=== PATIENT | female | born 1995 | race Caucasian/White ===

== ENCOUNTER 2021-01-19 10:17 | Observation (INO) ==
--- NOTE | 2021-01-15 08:34 | Anesthesiology Consultation ---
Date of Service January 15, 2021 Assessment & Plan (1) Encounter for pre-operative examination: Chart Review Chart Review: Acceptable Risk for Surgery (pending preop Covid testing ) and Patient NOT seen in Pre Admission Testing - Check BSG AM DOS - Check test AM DOS Per nursing assessment 01/14/21, patient denies any recent travel. No known Covid positive contacts or Covid related symptoms. No known Covid infection in the past 90 days. Preop Covid testing done 01/13/21 at [facility]= awaiting results . History Surgery Operation Date: 01/19/21 12:00 Proposed Procedures p L4-S1 Decompression and Fusion, Spinal Cord Monitoring - Romel Rea, Height/Weight Height: 5 ft 3 in Weight: 106.594 kg Allergies Allergy/AdvReac Type Severity Reaction Status Date / Time cephalexin [From Keflex] Allergy Intermediate Swelling Verified 01/14/21 10:38 of Lip/Tongue/Throat Medications Home Medications Medication Instructions Recorded Confirmed Last Taken clobetasol 1 % TOPICAL BID PRN 01/28/20 01/14/21 01/28/20 levonorgest-eth.estradiol-iron 1 tab PO PM 01/28/20 01/14/21 01/27/20 [Balcoltra] levothyroxine 50 mcg PO QAM 01/28/20 01/14/21 01/28/20 metformin 500 mg PO BID 01/28/20 01/14/21 Unknown escitalopram oxalate [Lexapro] 10 mg PO QAM 01/14/21 01/14/21 Unknown Past Medical History Medical History Anxiety Back pain Depression Diabetes Hypothyroidism Past Surgical History Surgical History History of myringotomy x1 [place] teeth extracted Social History Smoking Status: Never smoker Do You Dip or Chew Tobacco: No Hx Alcohol Use: Yes Alcohol type: wine alcohol intake frequency: a few times a month Hx Substance Use: No substance use type: does not use Lab Results Anesthesia Preop Results Results Anesthesia Widget: WBC 9.67 K/uL (4.8-10.8) 01/14/21 Hgb 15.4 g/dL (12.0-16.0) 01/14/21 Hct 45.5 % (37-47) 01/14/21 Plt 360 K/uL (130-400) 01/14/21 Na 139 mmol/L (136-145) 01/14/21 K 3.6 mmol/L (3.5-5.1) 01/14/21 Cl 106 mmol/L (98-107) 01/14/21 CO2 27 mmol/L (21-32) 01/14/21 BUN 20 mg/dl (7-18) H 01/14/21 Creat 0.72 mg/dl (0.6-1.2) 01/14/21 Glucose Level 101 mg/dl (70-99) H 01/14/21 PT 10.7 Seconds (9.0-12.0) 01/14/21 INR 1.1 (0.9-1.1) 01/14/21 Urine Color Dark Yellow 01/14/21 Urine Appearance Clear (Clear) 01/14/21 Urine pH 5.0 (4.5-7.5) 01/14/21 Urine Specific [place] 1.030 (1.000-1.030) 01/14/21 Urine Protein Negative (Negative) 01/14/21 Urine Glucose (UA) Negative (Negative) 01/14/21 Urine Ketones Trace (Negative) H 01/14/21 Urine Blood 1+ (Negative) H 01/14/21 Urine Nitrite Negative (Negative) 01/14/21 Urine Bilirubin Negative (Negative) 01/14/21 Urine Urobilinogen Negative (Negative) 01/14/21 Urine Leukocyte Esterase Negative (Negative) 01/14/21 Urine WBC (Auto) 1-5 /hpf (0-5) 01/14/21 Urine RBC (Auto) 5-10 /hpf (0-4) H 01/14/21 Urine Hyaline Casts (Auto) 1-5 /lpf (0-5) 01/14/21 Urine Epithelial Cells (Auto) >30 /lpf (0-5) H 01/14/21 Urine Bacteria (Auto) Negative (Negative) 01/14/21 Testing Laboratory Results Blood Type A Positive 01/14/21 12:35 Antibody Screen NEGATIVE 01/14/21 12:35 Electrocardiogram Date: 01/14/21 NSR with sinus arrhythmia at 82bpm. Normal EKG per cardio. Chest X-Ray Date: 01/14/21 Findings: + NAD
[~2021-01-19 10:17] MED LIST: ACETAMINOPHEN 500 MG TAB PO SCH; CeleBREX 200 MG CAP PO SCH; GABAPENTIN 900 MG DOSE PO SCH; LR 15ML/HR IV SCH; SUGAMMADEX SODIUM 200 MG/2 ML VIAL IV ONE
[2021-01-19] MEDS ORDERED: SODIUM CHLORIDE 0.9% INJ 10 ML VIAL ONE (10:43)
[2021-01-19] MEDS ORDERED: DEXAMETHASONE SOD INJ 4 MG/ML VIAL ONE (10:43)
[2021-01-19] MEDS ORDERED: MIDAZOLAM HCL 1 MG/ML 2ML VIAL ONE (10:43)
[2021-01-19] MEDS ORDERED: LIDOCAINE 2% 2 ML VIAL/AMP(20MG/ML) INFIL ONE (10:43)
[2021-01-19] MEDS ORDERED: ONDANSETRON INJ 2 MG/ML 2 ML VIAL ONE (10:43)
[2021-01-19] MEDS ORDERED: PROPOFOL IV EMULSION 10 MG/ML 20 ML VIAL IV ONE (10:43)
[2021-01-19] MEDS ORDERED: ROCURONIUM BROMIDE 10 MG/ML 5 ML VIAL IV ONE ×4 (10:43→14:33)
[2021-01-19] MEDS ORDERED: HYDROmorphone INJ 2 MG/ML SYR/VIAL ONE (10:44)
[2021-01-19] MEDS ORDERED: ONDANSETRON INJ 2 MG/ML 2 ML VIAL IV PRN ×2 (11:17→16:18)
[2021-01-19] MEDS ORDERED: ATROPINE SULFATE 0.1 MG/ML 10ML SYR IV PRN (11:17)
[2021-01-19] MEDS ORDERED: ePHEDrine sulfate 50 MG/ML AMP IV PRN (11:17)
[2021-01-19 11:47] LABS: Pregnancy Test, Urine Negative (Negative)
--- NOTE | 2021-01-19 12:10 | History & Physical Bridge Note ---
Date of Service January 19, 2021 History & Physical Bridge Note I have examined the patient, reviewed the History & Physical and in the interval since the performance of the History & Physical I have noted the following changes of clinical significance: no changes noted
--- NOTE | 2021-01-19 12:11 | History & Physical Report ---
Date of Service January 19, 2021 Assessment & Plan (1) Herniation of cervical intervertebral disc with radiculopathy: Admission and Anticipated Discharge Date Admission Date: L4-S1 decompression fusion History of Present Illness Chief Complaint: Back and bilateral leg pain Primary Care Provider: Lynn De La Rosa MD This is a 25-year-old female who presents with chronic persistent back and leg pain. Failing course of nonoperative care she is here for surgical invention. Allergies Allergy/AdvReac Type Severity Reaction Status Date / Time cephalexin [From Keflex] Allergy Intermediate Swelling Verified 01/19/21 10:48 of Lip/Tongue/Throat Home Medications Medication Instructions Recorded Confirmed Type clobetasol 1 % TOPICAL BID PRN 01/28/20 01/19/21 History levonorgest-eth.estradiol-iron 1 tab PO PM 01/28/20 01/19/21 History [Balcoltra] levothyroxine 50 mcg PO QAM 01/28/20 01/19/21 History metformin 500 mg PO BID 01/28/20 01/19/21 History escitalopram oxalate [Lexapro] 10 mg PO QAM 01/14/21 01/19/21 History Past Med/Surg History Medical History Anxiety Back pain Depression Diabetes Hypothyroidism Surgical History History of myringotomy x1 [place] teeth extracted Social History Smoking Status: Never smoker Second Hand Exposure: No; Do You Dip or Chew Tobacco: No; Tobacco Cessation Education Requested by Patient: No Hx Alcohol Use: Yes Alcohol type: wine Hx Substance Use: No Preferred Language: Kinyarwanda Communication Ability: Effective Costume Mistress Required: No Beliefs That Will Affect Care: None Current Living Situation: Significant Other current occupational status: employed current occupation: Works at [employer] Other Information That Helps Us Care for You: No Feels Safe at Home: Yes Safety Concerns: Feels Safe At This Time Assistive Devices: Contacts and Glasses Physical Exam Physical Exam: Patient is alert and oriented Heart regular rate and rhythm Lungs clear to auscultation Results & Data ([facility]) Vital Signs (Past 12 Hours) Vital Signs Temp Pulse Resp BP Pulse Ox 01/19/21 10:52 37.4 C 90 18 135/83 98
[2021-01-19] MEDS ORDERED: CLINDAMYCIN 600 MG/54 ML D5W IV ONE (12:24)
[2021-01-19] MEDS ORDERED: BUPIVACAINE/EPINEPHRINE 0.5% MPF 1:200,000 30 ML VIAL ONE (12:35)
[2021-01-19] MEDS: CLINDAMYCIN 600 MG/54 ML BAG IV SCH ×2 (12:39→16:46)
--- NOTE | 2021-01-19 14:44 | Operative Report ---
Post Operative Report Pre & Post Diagnosis Operation Date: 01/19/21 12:00 Pre-Op Diagnosis: Intervertebral Disc Disorders with Radiculopathy Post-Op Diagnosis: Intervertebral Disc Disorders with Radiculopathy I identified the patient and participated in the time-out.: Yes Procedure Operation Date: 01/19/21 12:00 Actual Procedures #1 Lumbar decompression with bilateral medial facetectomies and foraminotomies L3-4, L4-5 and L5-S1. #2 posterior spinal fusion L4-5 L5-S1. #3 placement posterior instrumentation L4-5 L5-S1. #4 interbody fusion L4-5 L5-S1. #5 placement peek cage 12 x 22 mm at L4-5 and L5-S1. #6 placement of locally harvested morselized autograft in the posterior gutters. #7 placement of I factor in the interbody space and posterior lateral gutters. Surgeon Romel Rea, DO Aircraft Log Clerk Ana M Loo Estimated Blood Loss 100 Findings See Below The patient is 5 ft 3 in tall weighing over 106 kg with a BMI in excess of 41. The patient's body habitus did contribute to significant technical difficulty requiring her deepest retractors longus instruments in order to perform her procedure. This had at least 50% increase to the operative time. Specimens None Indications This is a 25-year-old female presents with above-mentioned diagnosis after failing since course of nonoperative care she is here for the above-mentioned procedure. Description of Procedure Patient was met with identified informed consent obtained. Patient was then veronica en to the operative suite underwent a patient placed in a prone position the Harsha table top Rico frame. All bony prominences well-padded eyes inspected to ensure no external pressure placed upon the. This point the lumbar spine was prepped and draped in a sterile fashion. Sharp dissection with the assistance of Bovie cautery performed down to and exposing the lamina and transverse processes of L4-L5 and sacral ala bilaterally. From caudal to cephalad fashion complete laminectomy L5 L4 partial laminectomy L3 was performed including bilateral medial facetectomies and foraminotomies addressing severe spinal stenosis as well as evidence of large calcified disc herniations. After complete decompression pedicle screws were placed in L4-L5 and S1 levels bilaterally with assistance of fluoroscopy and the proper sized azul placed. By way of a transforaminal approach on right complete discectomy of L4-5 S1 was performed endplates curetted to subcortically bone and a 12 x 22 mm peek cage filled with I factor tapped in position. I then proceeded to L4-L5 and again by way of a transforaminal portion right complete discectomy performed endplates curetted to subcortically bone and a 12 x 22 mm peek cage filled with I factor tapped in position. The rods were then locked in final position bilaterally. The transverse processes of L4-L5 and sacral ala burred to subcortical bleeding bone. I factor combined with locally harvested morselized autograft was placed in the posterior gutters. 15 round TEMO drain inserted. The incision was then closed with 1 Vicryl in the fascia 2-0 Vicryl subcutaneously and 4 Monocryl for final skin closure. Steri-Strip sterile dressing was placed. Patient will continue PACU stable condition. Please note spinal cord monitoring was utilized at the procedure no changes noted. Lastly Ana M Loo was present at the entire surgery involved the patient positioning complex portions of the surgery and final skin closure. I attest to the content of the Intraoperative Record and any orders documented therein. Any exceptions are noted below.
[2021-01-19] MEDS: fentaNYL citrate 100 MCG/2 ML VIAL IV PRN ×4 (15:07→15:22)
--- NOTE | 2021-01-19 15:08 | Fluoroscopy Report ---
FL lumbar spine 2-3V HISTORY: 25 years-old Female L4-S1 DECOMPRESSION AND FUSION COMPARISON: None TECHNIQUE: 2 spot fluoroscopic images of the lumbar spine were obtained utilizing 24.0 seconds fluoro scopy time FINDINGS: Laminectomy with posterior interbody azul and screw fusion hardware and discectomy at L4-S1. Alignment appears satisfactory. No unexpected opaque foreign body. The hardware appears intact. IMPRESSION: Fluoroscopic assistance as above. ACT 112: Negative or not required by law. The above report was generated using voice recognition software. It may contain grammatical, syntax o r spelling errors. Electronically signed by: Arnold Morrell M.D. 01/19/2021 3:06 PM
[2021-01-19] MEDS: HYDROmorphone INJ 2 MG/ML SYR/VIAL IV PRN ×2 (15:27→15:32)
--- NOTE | 2021-01-19 16:17 | Anesthesiology Progress Note ---
Date of Service January 19, 2021 Anesthesia Post Procedure Vital Signs Vital Signs: Temp Pulse Pulse Resp BP Pulse Ox 01/19/21 15:55 36.4 C L 92 H 16 138/87 97 01/19/21 15:45 85 12 138/85 96 01/19/21 15:35 87 18 137/87 96 01/19/21 15:25 106 H 28 H 134/94 97 01/19/21 15:15 103 H 29 H 151/108 H 98 01/19/21 15:05 128 H 26 H 153/101 H 98 01/19/21 14:59 36.2 C L 112 H 22 134/77 90 01/19/21 10:52 37.4 C 90 18 135/83 98 Pain Intensity Right Back: Pain Intensity: 3 Transfer of Care Handoff Completed per policy Notes Mental Status: alert / awake / arousable and participated in evaluation Patient Amnestic to Procedure: Yes Nausea / Vomiting: adequately controlled Pain: adequately controlled Airway Patency, RR, SpO2: stable & adequate BP & HR: stable & adequate Hydration State: stable & adequate Anesthetic Complications: no major complications apparent and Pt Satisfied with anesthetic care
[2021-01-19] MEDS ORDERED: ACETAMINOPHEN 500 MG TAB PO PRN (16:18)
[2021-01-19] MEDS ORDERED: MAGNESIUM HYDROXIDE SUSP 30 ML UDC PO PRN (16:18)
[2021-01-19] MEDS ORDERED: HYDROmorphone INJ 0.5 MG/0.5 ML SYR IV PRN (16:18)
[2021-01-19] MEDS ORDERED: SOD PHOSPHATE/SOD BIPHOSPHATE ENEMA 132 ML BTL PR PRN (16:18)
[2021-01-19] MEDS ORDERED: ALUMINUM/MAGNESIUM SUSP 30 ML UDC PO PRN (16:18)
[2021-01-19] MEDS ORDERED: ACETAMINOPHEN 1,000 MG/100 ML VIAL IV PRN (16:18)
[2021-01-19] MEDS ORDERED: bisacodyL 10 MG SUPP PR PRN (16:18)
[2021-01-19] MEDS ORDERED: HYDROmorphone INJ 1 MG/ML SYRINGE IV PRN (16:18)
[2021-01-19] MEDS ORDERED: hydrOXYzine HCl 25 MG TAB PO PRN (16:18)
[2021-01-19] MEDS ORDERED: ONDANSETRON 4 MG OD TAB PO PRN (16:18)
[2021-01-19] MEDS ORDERED: FAMOTIDINE 20 MG TAB PO PRN (16:18)
[2021-01-19] MEDS ORDERED: DO NOT ADMINISTER FLU VACCINE PRN (16:18)
[2021-01-19] MEDS ORDERED: traMADol HCL 50 MG TABLET PO PRN (16:18)
[2021-01-19] MEDS ORDERED: NALOXONE HCL 0.4 MG/1 ML VIAL/CARP IV PRN (16:18)
[2021-01-19] MEDS ORDERED: LORazepam 0.5 MG/1 ML VIAL IV PRN (16:18)
[2021-01-19] MEDS ORDERED: METOCLOPRAMIDE HCL INJ 5 MG/ML 2 ML VIAL IV PRN (16:18)
[2021-01-19] MEDS ORDERED: diphenhydrAMINE Capsule 25 MG CAP PO PRN (16:18)
[2021-01-19] MEDS ORDERED: LORazepam 0.5 MG TAB PO PRN (16:18)
[2021-01-19] MEDS ORDERED: DO NOT ADMINISTER PNEUMOCOCCAL VACCINE PRN (16:18)
[2021-01-19] MEDS ORDERED: PROMETHAZINE HCL 12.5 MG in SODIUM CHLORIDE 0.9% 50 ML IV PRN (16:18)
[2021-01-19] MEDS ORDERED: PHARMACY GLYCEMIC MGMT CONSULT PRN (16:29)
[2021-01-19] MEDS: INSULIN ASPART 100 UNITS/ML 3 ML PEN SC SCH ×2 (17:38→20:46)
[2021-01-19] MEDS: LACTATED RINGER'S 1,000 ML IV SCH ×2 (17:38→22:56)
[2021-01-19] MEDS: KETOROLAC 30 MG/ML VIAL IV SCH ×2 (17:38→22:57)
[2021-01-19] MEDS: oxyCODONE HCL IR 5 MG TAB (IMMEDIATE RELEASE) PO PRN (20:37)
[2021-01-19] MEDS: DOCUSATE SODIUM/SENNA 50/8.6MG TAB PO SCH (20:38)
[2021-01-19] MEDS: CLINDAMYCIN 600 MG in DEXTROSE 5% 50 ML IV SCH (20:42)
[2021-01-20] MEDS: CLINDAMYCIN 600 MG in DEXTROSE 5% 50 ML IV SCH (05:21)
[2021-01-20] MEDS: KETOROLAC 30 MG/ML VIAL IV SCH ×2 (05:24→11:31)
[2021-01-20] MEDS: POLYETHYLENE (MIRALAX) 17 GM PACK PO SCH ×4 (06:14→23:48)
[2021-01-20] MEDS: LEVOTHYROXINE SODIUM 50 MCG TABLET PO SCH (06:15)
[2021-01-20] MEDS: LACTATED RINGER'S 1,000 ML IV SCH (06:17)
[2021-01-20 06:28] LABS: Basophils # (auto) 0.01 K/uL (0-0.2); Basophils % (auto) 0.1 %; Eosinophils # (auto) 0.01 K/uL (0-0.5); Eosinophils % (auto) 0.1 %; Hematocrit (blood only) 36.7 % (37-47); Hemoglobin 12.1 g/dL (12.0-16.0); Immature Granulocytes # (auto) 0.02 K/uL (0.00-0.02); Immature Granulocytes % (auto) 0.2 %; Lymphocytes # (auto) 1.75 K/uL (1.2-3.4); Lymphocytes % (auto) 15.4 %; Mean Corpuscular Hemoglobin 27.6 pg (25-34); Mean Corpuscular Volume 83.8 fL (80-100); Mean Platelet Volume 10.1 fL (7.4-10.4); Monocytes # (auto) 0.63 K/uL (0.11-0.59); Monocytes % (auto) 5.6 %; Neutrophils # (auto) 8.93 K/uL (1.4-6.5); Neutrophils % (auto) 78.6 %; Platelet Count 370 K/uL (130-400); RDW Coefficient of Variation 12.2 % (11.5-14.5); RDW Standard Deviation 37.5 fL (36.4-46.3); Red Blood Count 4.38 M/uL (4.2-5.4); White Blood Count 11.35 K/uL (4.8-10.8)
[2021-01-20 07:06] LABS: BUN Creatinine Ratio 18.4 (10-20); Calcium 8.8 mg/dl (8.5-10.1); Creatinine Clr Calc Pharmacy 173.4 ml/min; Est GFR (African American) 147.2
[2021-01-20 07:42] LABS: Estimated Average Glucose 131 mg/dl; Hemoglobin A1C 6.2 % (4.5-5.6)
[2021-01-20] MEDS: INSULIN ASPART 100 UNITS/ML 3 ML PEN SC SCH ×4 (08:38→21:21)
[2021-01-20] MEDS: ESCITALOPRAM OXALATE 10 MG TAB PO SCH (08:45)
[2021-01-20] MEDS: metFORMIN HCL 500 MG TAB PO SCH ×2 (08:45→17:21)
[2021-01-20] MEDS: oxyCODONE HCL IR 5 MG TAB (IMMEDIATE RELEASE) PO PRN ×2 (08:45→23:49)
--- NOTE | 2021-01-20 11:20 | Pharmacy Report ---
Pharmacy Glycemic Short Note 2 - Date of Service January 20, 2021 - Glycemic Short BSG Results (Last 24 hours): 01/19/21 01/19/21 01/19/21 15:03 17:07 20:40 Glucose POC Glucose 93 114 H 159 H 01/20/21 01/20/21 06:16 08:18 Glucose 130 H POC Glucose 104 H OUTPATIENT ANTIDIABETIC REGIMEN: * Metformin 500mg PO BID * HbA1c: 6.2% (01/20/21) ASSESSMENT: * Ms Meyers is a 25yo diabetic female, POD #1 s/p spinal surgery. * Novolog was added post-op to cover for hyperglycemia. * Pt appears to be tolerating diet, and renal function is appropriate, so Metformin re-started this morning. * No further changes anticipated, but will continue to follow. PLAN FOR INPATIENT GLYCEMIC CONTROL: * Resume Metformin 500mg PO BID * Basal insulin * none * Bolus insulin * NovoLog per scale ACHS or Q6hrs while NPO * Goal Range: Low 110 mg/dL - High 140 mg/dL * Correction Factor: 40 mg/dL/unit * Nutritional / Prandial insulin: none PLAN FOR DISCHARGE: * A1c: 6.2% * This indicates excellent glycemic control. Expect that pt may resume home regimen on discharge, as long as she does not report having episodes of hypoglycemia.
--- NOTE | 2021-01-20 13:41 | Orthopedic Progress Note ---
Date of Service January 20, 2021 Assessment & Plan (1) Herniation of cervical intervertebral disc with radiculopathy: Admission and Anticipated Discharge Date Admission Date: January 19, 2021 At this time we'll continue physical therapy monitor TEMO output hopefully disch arge home in next few days. Subjective Patient's pain is well controlled. No leg pain. Physical Exam Physical Exam: Patient has good strength testing appears comfortable. Results & Data ([facility]) Vital Signs (Past 12 Hours) Vital Signs Temp Pulse Resp BP Pulse Ox 01/20/21 08:00 37.2 C 84 16 112/72 98 01/20/21 04:10 37.1 C 72 16 107/70 98
[2021-01-20] MEDS: [UNRECOGNIZED DRUG - OTHER] SCH ×2 (15:48→23:49)
[2021-01-20] MEDS: DOCUSATE SODIUM/SENNA 50/8.6MG TAB PO SCH (21:17)
[2021-01-21] MEDS: oxyCODONE HCL IR 5 MG TAB (IMMEDIATE RELEASE) PO PRN ×3 (00:24→12:55)
[2021-01-21] MEDS: LEVOTHYROXINE SODIUM 50 MCG TABLET PO SCH (05:40)
[2021-01-21] MEDS: POLYETHYLENE (MIRALAX) 17 GM PACK PO SCH ×2 (05:40→12:56)
[2021-01-21] MEDS: [UNRECOGNIZED DRUG - OTHER] SCH ×2 (08:02→15:11)
[2021-01-21] MEDS: metFORMIN HCL 500 MG TAB PO SCH (08:05)
[2021-01-21] MEDS: ESCITALOPRAM OXALATE 10 MG TAB PO SCH (08:05)
[2021-01-21] MEDS: INSULIN ASPART 100 UNITS/ML 3 ML PEN SC SCH ×2 (08:49→12:56)
--- NOTE | 2021-01-21 12:07 | Discharge Summary ---
Date of Service January 21, 2021 Admission HPI Per Admitting Provider This is a 25-year-old female who presents with chronic persistent back and leg pain. Failing course of nonoperative care she is here for surgical invention. Principal Diagnosis Lumbar spinal stenosis with radiculopathy Discharge Data Allergies Allergy/AdvReac Type Severity Reaction Status Date / Time cephalexin [From Keflex] Allergy Intermediate Swelling Verified 01/19/21 10:48 of Lip/Tongue/Throat Procedures Performed Operation Date: 01/19/21 12:00 Actual Procedures p L4-S1 Decompression and Fusion, Interbody at L4-L5 and L5-S1, Spinal Cord Monitoring(Not Applicable) - Romel Rea DO Ordered Studies 01/19/21 12:00 [place] lumbar spine 2-3V Routine Hospital Course (1) Herniation of cervical intervertebral disc with radiculopathy: Patient with lumbar decompression fusion dorsal second orthopedic for postoperative. Postop day 1 she was up and ambulating José Luis postop day #2 on postop day #3 back pain is well controlled leg pain improved subsequently discharged home. Discharge orders instructions from the chart for further revie w. Total Time Total Time Spent Total Time Spent (In Minutes): 20 minutes Discharge Plan Discharge Items Patient Disposition: Home - Self-Care Reason For Visit: Intervertebral Disc Disorders with Radiculopathy Discharge Diagnosis: Lumbar disc herniation with radiculopathy Activity: As commented below Non-emergency contact: Primary Care Provider Call non-emergency contact if: you have any medication questions Follow-up/Referrals: Lynn De La Rosa MD [Primary Care Provider] - Diet: Regular Addtl Attending Provider Instructions: ACTIVITY RECOMMENDATIONS: SELF CARE INSTRUCTIONS AFTER THORACIC/LUMBAR FUSIONS 1. You may walk to your tolerance. It is good exercise for your legs and back. Expect some back and intermittent leg aches and pains. 2. You may perform "counter-top" level activities (make a sandwich, karely with a project, etc.). 3. No bending or lifting of more than 10 pounds or back twisting of any nature (roll like a log when turning in bed). 4. You may ride in a car for 20-30 minutes at a time. No driving until after your first visit with your doctor. 5. Frequent changes of position and restricting sitting to 30 minutes at a time will help limit the amount of back spasms and stiffness you may experience. 6. You may discontinue the use of ambulatory aids (cane, crutches, etc.) once your strength and confidence allow. 7. You may health insurance sales agent the shower and let water strike your incision when you arrive home at least once daily. Do not take a tub bath, sit in a hot tub or go into a swimming pool until after your first recheck in the office. SPECIAL CARE INSTRUCTIONS: VERY IMPORTANT TO READ AND REVIEW A. Your surgical incision has been closed with a cosmetic suture under the skin that will dissolve in about 6 weeks. In 14 days, you can use a pair of clean scissors and cut the suture that is left outside of the skin at the ends of your incision. 1. The small skin tapes can be removed 7 days after surgery if they have not fallen off by that point. 2. You may keep the wound open to air as much as possible to promote healing after post-op day number 5 unless told otherwise by your doctor. 3. If you think the wound looks like it is becoming infected (redness or worsening drainage) and/or you are experiencing fever, chill or worsening back pain and muscle spasms, contact the office so that we may evaluate you as soon as possible. B. Complications are uncommon, but please contact us if you have any signs or symptoms of: 1. wound infection (fever higher than 102.5 degrees F, redness, separation of wound, drainage, or increasing pain from the incision) 2. blood clots in legs (pain, swelling, redness and warmth in legs) 3. urinary tract infection (fever higher than 102.5 degrees F, burning upon urination or increased frequency of urination) 4. nerve problems (inability to walk on your toes or heels, numbness, loss of bowel or bladder control) 5. any other symptoms that concern you C. Please call the office at if you have any concerns or questions about your operation or recovery. D. No smoking! Smoking drastically decreases the chance of a solid fusion. E. Do not take any anti-inflammatory medications (Indocin, Advil, Motrin, Aspirin, Naprosyn, etc.) as these may inhibit the chance of a solid fusion. Tylenol is okay to take for pain. MANAGING PAIN AFTER SPINAL SURGERY 1. Narcotic medication is intended for short-term use and will be provided for surgical pain. Surgical pain usually lasts for a period of 4-6 weeks. Narcotic medication includes Percocet, Vicodin, Darvocet, Tylenol #3 or Lortab. 2. Longer-term pain is more appropriately treated with non-narcotic medication such as Tylenol ES. 3. Muscle spasm is not appropriately treated with narcotics. Muscle relaxers such as Soma, Flexeril or Skelaxin can be used along with Tylenol ES. 4. Remember that we all live with some "aches and pains". This is not unusual or uncommon after an injury or as we get older. a. Back pain is expected and may include muscle spasms for 4 to 6 weeks after surgery. The pain should gradually improve. If the pain worsens for no apparent reason, please contact the office. b. Intermittent leg pain may also be experienced and should not be concerned about unless it worsens for no apparent reason. If so, please contact the office. 5. We will provide appropriate medication within the normal guidelines of their prescribed use. We will also be very cautious and aware of potential abuse and extended duration of patients' medication needs. a. Pain medications are for your comfort and to assist with sleep and rest so that the tissue can heal. They are not provided in order to return to normal activity and should not be used through the day. To do so or worsening pain at night can result from ongoing tissue damage and development of tolerance to the prescribed medicine. 6. Please allow 2-3 days to process refills. Prescriptions will not be mailed but must be picked up at the office. FOLLOW UP VISIT: Keep your scheduled follow-up appointment. Any questions, please call the office at . Pending Studies at Discharge: No Stand-Alone Forms: My [facility] [employer], Smoking Cessation Medications and DC Order Prescriptions: New oxycodone 5 mg tablet 5 mg PO Q6H PRN (Reason: pain, severe) Qty: 30 RF: 0 tramadol 50 mg tablet 50 mg PO Q6H PRN (Reason: pain, moderate) Qty: 30 RF: 0 Continued metformin 500 mg tablet 500 mg PO BID RF: 0 levothyroxine 50 mcg tablet 50 mcg PO QAM RF: 0 clobetasol 0.05 % ointment 1 % TOPICAL BID PRN (Reason: Rash) RF: 0 Balcoltra 0.1 mg-0.02 mg (21)/36.5 mg(7) tablet 1 tab PO PM RF: 0 escitalopram oxalate [Lexapro] 10 mg Tablet 10 mg PO QAM RF: 0 Discharge Orders: Discharge Order (Routine); Ordered 01/21/21 Ordered By: Romel You/Other Patient Handouts: High Blood Sugar (Hyperglycemia), Hypoglycemia (Low Blood Sugar), Managing Type 2 Diabetes, Managing Diabetes: The A1C Test Admission Data Admit Date/Time: 01/19/21 14:57 Attending Provider: Romel Rea Admit Provider: Romel Rea Primary Care Provider: Lynn De La Rosa
--- NOTE | 2021-02-01 06:50 | Coding Query ---
BMI To promote full compliance with coding requirements relating to patient care, physician participation is requested in all cases of scientific photographer uncertainty. Please assist us with the question(s) below: Please place an X within the parenthesis (x). If other, please document: BMI 41 was documented in this record for this patient. If the BMI is significant, please check the box that provides a more specific associated diagnosis: ( ) Overweight/Obese ( ) Obesity (x ) Morbid obesity ( ) Obesity Hypoventilation Syndrome (OHS) ( ) [place] weight, not significant ( ) Underweight/Thin ( ) Other, please specify Thank you Rebecca MANCILLA
== END 2021-01-21 16:47 | disposition home or self-care (01) | DRG 454 ==
LOC: ASU 10:17 → INTOOBSV 14:57 → 3E 14:57